=== PATIENT | female | born 1970 | race Caucasian/White ===

== ENCOUNTER → 2016-10-30 | Outpatient (CLI) | payer OTHER ==
[~2016-10-30] MED LIST: ANAPROX DS550 MG PO; AUGMENTIN 875875 MG PO; CHANTIX0.5 MG PO; CLARITIN10 MG PO; CYCLOBENZAPRINE10 MG PO; DAYPRO600 M1 PO; DELTASONE20 M1 PO; DONNATAL1 TAB PO; FLEXERIL10 MG PO; HYCODAN/HYDROMET5 ML PO; HYDROCODONE BIT1 T11 PO; K-DUR 20MEQ20 MEQ PO; MEDROL DOSEPAK4 MG PO; MOTRIN600 MG PO; MOTRIN800 MG PO; Motrin,Rufen800 MG PO; NAPROSYN500 MG PO; NKHM; PHENERGAN25 M1 PO; PREDNICOT20 MG PO; PROTONIX40 MG PO; PROVENTIL0.09 MG/A1 INH; ROBAXIN750 MG PO; SEPTRA DS 800 M1 TAB PO; TRAMADOL HCL50 MG PO; ULTRAM50 MG PO; VICODIN 5/500 505 MG PO; VICODIN 500 MG-1 TAB PO; ZITHROMAX250 MG PO; ZOFRAN ODT4 MG PO
== END | disposition home or self-care (01) ==
LOC: MAMMO 12:18
DX: Z12.31 Encounter for screening mammogram for malignant neoplasm of breast (principal)

== ENCOUNTER → 2017-02-11 | Outpatient (CLI) | payer OTHER | END | disposition home or self-care (01) | LOC: RAD 08:35 | DX: M25.552 Pain in left hip (principal); M25.551 Pain in right hip ==

== ENCOUNTER 2017-04-04 20:53 | Emergency (ER) | payer OTHER ==
[~2017-04-04] VITALS: Ht 180.3 cm; Wt 91.2 kg
[2017-04-04 20:58] VITALS: BP 170/91
[2017-04-04] MEDS ORDERED: CEPHALEXIN500 M1 PO (22:10)
== END 2017-04-04 22:45 | disposition home or self-care (01) ==
LOC: ED 20:53
DX: S61.217A Laceration without foreign body of left little finger without damage to nail, initial encounter (principal); Z91.041 Radiographic dye allergy status; W25.XXXA Contact with sharp glass, initial encounter; Y93.89 Activity, other specified; Y92.9 Unspecified place or not applicable; Y99.9 Unspecified external cause status

== ENCOUNTER 2017-05-06 17:01 | Emergency (ER) | payer OTHER ==
[~2017-05-06] VITALS: Wt 87.1 kg
[~2017-05-06 17:01] MED LIST changes: +CEPHALEXIN500 M1 PO
[2017-05-06 17:02] VITALS: BP 162/89
[2017-05-06 17:34] LABS: BASO # 0.1 10*3/uL (0.0-0.1); BASO % 0.7 % (0.0-1.0); EOS # 0.3 10*3/uL (0.0-0.4); EOS % 2.4 % (1.0-4.0); HEMATOCRIT 42.8 % (37.0-47.0); HEMOGLOBIN 14.6 g/dl (12.0-16.0); LYMPH # 3.5 10*3/uL (1.3-4.4); LYMPH % 28.5 % (27.0-41.0); MEAN CELL VOLUME 89.5 fl (81.0-99.0); MEAN CORPUSCULAR HGB 30.5 pg (27.0-31.0); MEAN CORPUSCULAR HGB CONC 34.1 g/dl (33.0-37.0); MEAN PLATELET VOLUME 8.9 fl (9.6-12.3); MONO # 0.7 10*3/uL (0.1-1.0); MONO % 5.6 % (3.0-9.0); NEUT # 7.8 10*3/uL (2.3-7.9); NEUT % 62.6 % (47.0-73.0); PLATELET COUNT AUTOMATED 328 10*3/uL (130-400); RED BLOOD COUNT 4.78 10*6/uL (4.10-5.10); RED CELL DISTRI WIDTH 12.9 % (0-14.5); WHITE BLOOD COUNT 12.4 10*3/uL (4.8-10.8)
[2017-05-06 17:41] LABS: BILIRUBIN NEGATIVE (NEGATIVE); BLOOD 1+ (NEGATIVE); CLARITY SL CLOUDY (CLEAR); COLOR YELLOW (YELLOW); GLUCOSE NEGATIVE (NEGATIVE); KETONE NEGATIVE (NEGATIVE); LEUKO ESTERASE NEGATIVE (NEGATIVE); NITRITE NEGATIVE (NEGATIVE); PROTEIN TRACE (NEGATIVE); SPECIFIC GRAVITY >= 1.030 (1.005-1.030); UROBILINOGEN 0.2 E.U./dl (0.2-1.0)
[2017-05-06 17:50] LABS: ALBUMIN 3.4 gm/dl (3.1-4.5); ALKALINE PHOSPHATASE 76 U/L (45-117); BILIRUBIN, TOTAL 0.3 mg/dl (0.2-1.0); BUN 10 mg/dl (7-24); CARBON DIOXIDE 22 mmol/L (21-32); CHLORIDE 105 mmol/L (98-107); EST GLOM FILT AFRICAN AMERICAN > 60 ml/min; GLUCOSE 157 mg/dL (65-99); POTASSIUM 3.1 mmol/L (3.5-5.1); SGOT/AST 14 IU/L (3-35); SGPT/ALT 17 U/L (12-78); SODIUM 138 mmol/L (136-145); TOTAL PROTEIN 6.7 gm/dL (6.4-8.2)
[2017-05-06 17:59] LABS: BACTERIA 2+; MUCOUS TRACE; URINE REFLEX COMMENT YES (NO)
[2017-05-06 18:01] LABS: EPITHELIAL CELLS 20-25
[2017-05-06] MEDS ORDERED: LEVOFLOXACIN500 MG PO (18:33)
[2017-05-06] MEDS ORDERED: FLAGYL500 MG PO (18:33)
[2017-05-06] MEDS ORDERED: HYDROCODONE BIT1 T11 PO (18:38)
== END 2017-05-06 18:48 | disposition home or self-care (01) ==
LOC: ED 17:01
PROVIDERS: Registered Nurse
DX: R30.0 Dysuria (principal); R19.7 Diarrhea, unspecified; F17.200 Nicotine dependence, unspecified, uncomplicated; Z90.49 Acquired absence of other specified parts of digestive tract; Z91.041 Radiographic dye allergy status

== ENCOUNTER 2017-05-08 07:10 | Emergency (ER) | payer OTHER ==
[~2017-05-08] VITALS: Ht 180.3 cm; Wt 87.1 kg
[~2017-05-08 07:10] MED LIST changes: +FLAGYL500 MG PO; +LEVOFLOXACIN500 MG PO
[2017-05-08 07:16] VITALS: BP 136/88
[2017-05-08 07:39] LABS: BASO # 0.1 10*3/uL (0.0-0.1); BASO % 0.8 % (0.0-1.0); EOS # 0.4 10*3/uL (0.0-0.4); EOS % 3.3 % (1.0-4.0); HEMATOCRIT 46.6 % (37.0-47.0); HEMOGLOBIN 15.6 g/dl (12.0-16.0); LYMPH # 3.2 10*3/uL (1.3-4.4); LYMPH % 26.3 % (27.0-41.0); MEAN CELL VOLUME 89.6 fl (81.0-99.0); MEAN CORPUSCULAR HGB CONC 33.5 g/dl (33.0-37.0); MEAN PLATELET VOLUME 8.8 fl (9.6-12.3); MONO # 1.2 10*3/uL (0.1-1.0); MONO % 9.9 % (3.0-9.0); NEUT # 7.3 10*3/uL (2.3-7.9); NEUT % 59.4 % (47.0-73.0); PLATELET COUNT AUTOMATED 339 10*3/uL (130-400); RED CELL DISTRI WIDTH 12.9 % (0-14.5); WHITE BLOOD COUNT 12.3 10*3/uL (4.8-10.8)
[2017-05-08 07:58] LABS: ALBUMIN 3.7 gm/dl (3.1-4.5); ALKALINE PHOSPHATASE 85 U/L (45-117); BILIRUBIN, TOTAL 0.4 mg/dl (0.2-1.0); BUN 11 mg/dl (7-24); CARBON DIOXIDE 25 mmol/L (21-32); CHLORIDE 105 mmol/L (98-107); EST GLOM FILT AFRICAN AMERICAN > 60 ml/min; GLUCOSE 120 mg/dL (65-99); POTASSIUM 3.4 mmol/L (3.5-5.1); SGOT/AST 16 IU/L (3-35); SGPT/ALT 18 U/L (12-78); SODIUM 137 mmol/L (136-145); TOTAL PROTEIN 7.4 gm/dL (6.4-8.2)
[2017-05-08 08:04] LABS: C-REACTIVE PROTEIN < 0.29 MG/DL (0-0.3)
[2017-05-08 08:17] LABS: BILIRUBIN NEGATIVE (NEGATIVE); BLOOD 2+ (NEGATIVE); CLARITY SL CLOUDY (CLEAR); COLOR YELLOW (YELLOW); GLUCOSE NEGATIVE (NEGATIVE); KETONE TRACE (NEGATIVE); LEUKO ESTERASE TRACE (NEGATIVE); NITRITE NEGATIVE (NEGATIVE); PH 5.5 (5.0-9.0); PROTEIN TRACE (NEGATIVE); SPECIFIC GRAVITY >= 1.030 (1.005-1.030); UROBILINOGEN 0.2 E.U./dl (0.2-1.0)
[2017-05-08 08:25] LABS: CALCIUM OXALATE CRYSTALS 1+
[2017-05-08 08:26] LABS: URINE REFLEX COMMENT YES (NO)
[2017-05-08] MEDS ORDERED: IBU800 MG PO (09:33)
== END 2017-05-08 10:15 | disposition home or self-care (01) ==
LOC: ED 07:10
PROVIDERS: Student in an Organized Health Care Education/Training Program
DX: N20.0 Calculus of kidney (principal); R10.32 Left lower quadrant pain; R31.9 Hematuria, unspecified; F17.200 Nicotine dependence, unspecified, uncomplicated; Z90.49 Acquired absence of other specified parts of digestive tract; Z91.041 Radiographic dye allergy status

== ENCOUNTER 2017-11-02 23:17 | Emergency (ER) | payer OTHER ==
[~2017-11-02] VITALS: Ht 172.7 cm; Wt 70.3 kg
[~2017-11-02 23:17] MED LIST changes: +IBU800 MG PO
[2017-11-02 23:36] VITALS: BP 151/81
[2017-11-03] MEDS ORDERED: CHERATUSSIN AC118 M1 PO (02:27)
[2017-11-03] MEDS ORDERED: ZITHROMAX250 MG PO (03:07)
[2017-11-03] MEDS ORDERED: ALBUTEROL2.5 MG/0.5 INH (03:07)
[2017-11-03] MEDS ORDERED: PREDNISONE20 M1 PO (03:07)
== END 2017-11-03 03:23 | disposition home or self-care (01) ==
LOC: ED 23:17
DX: J40 Bronchitis, not specified as acute or chronic (principal); F17.200 Nicotine dependence, unspecified, uncomplicated; Z98.890 Other specified postprocedural states; Z98.51 Tubal ligation status; Z79.899 Other long term (current) drug therapy; Z91.041 Radiographic dye allergy status

== ENCOUNTER 2018-02-07 09:25 | Emergency (ER) | payer OTHER ==
[~2018-02-07] VITALS: Ht 180.3 cm; Wt 82.6 kg
[~2018-02-07 09:25] MED LIST changes: +ALBUTEROL2.5 MG/0.5 INH; +CHERATUSSIN AC118 M1 PO; +PREDNISONE20 M1 PO
[2018-02-07 09:26] VITALS: BP 149/90
== END 2018-02-07 10:00 | disposition home or self-care (01) ==
LOC: ED 09:25
DX: S30.861A Insect bite (nonvenomous) of abdominal wall, initial encounter (principal); R03.0 Elevated blood-pressure reading, without diagnosis of hypertension; Z98.890 Other specified postprocedural states; Z98.51 Tubal ligation status; Z90.49 Acquired absence of other specified parts of digestive tract; Z79.899 Other long term (current) drug therapy; Z91.041 Radiographic dye allergy status; W57.XXXA Bitten or stung by nonvenomous insect and other nonvenomous arthropods, initial encounter; Y93.89 Activity, other specified; Y92.89 Other specified places as the place of occurrence of the external cause; Y99.9 Unspecified external cause status

== ENCOUNTER 2018-06-29 14:44 | Emergency (ER) | payer BC, OTHER ==
[~2018-06-29] VITALS: Ht 180.3 cm; Wt 83.0 kg
[~2018-06-29 14:44] MED LIST changes: +AVPAK AZITHROM250 M1 PO; +PREDNISONE50 MG PO
[2018-06-29 15:40] LABS: BASO # 0.1 10*3/uL (0.0-0.1); BASO % 0.7 % (0.0-1.0); EOS # 0.7 10*3/uL (0.0-0.4); EOS % 6.4 % (1.0-4.0); HEMATOCRIT 45.1 % (37.0-47.0); HEMOGLOBIN 15.3 g/dl (12.0-16.0); LYMPH # 1.3 10*3/uL (1.3-4.4); LYMPH % 12.2 % (27.0-41.0); MEAN CELL VOLUME 90.2 fl (81.0-99.0); MEAN CORPUSCULAR HGB 30.6 pg (27.0-31.0); MEAN CORPUSCULAR HGB CONC 33.9 g/dl (33.0-37.0); MEAN PLATELET VOLUME 8.7 fl (9.6-12.3); MONO # 1.3 10*3/uL (0.1-1.0); MONO % 11.4 % (3.0-9.0); NEUT # 7.6 10*3/uL (2.3-7.9); PLATELET COUNT AUTOMATED 294 10*3/uL (130-400); RED CELL DISTRI WIDTH 13.1 % (0-14.5)
[2018-06-29 15:55] LABS: ALBUMIN 3.5 gm/dl (3.1-4.5); ALKALINE PHOSPHATASE 96 U/L (45-117); BUN 5 mg/dl (7-24); CHLORIDE 104 mmol/L (98-107); POTASSIUM 3.6 mmol/L (3.5-5.1); SGOT/AST 16 IU/L (3-35); SGPT/ALT 19 U/L (12-78); SODIUM 137 mmol/L (136-145); TOTAL PROTEIN 7.1 gm/dL (6.4-8.2)
[2018-06-29] MEDS ORDERED: OFLOXACIN 5 ML5 M1 OP (17:18)
[2018-06-29] MEDS ORDERED: PRILOSEC20 M1 PO ×2 (17:18→17:23)
[2018-06-29] MEDS ORDERED: OFLOXACIN OP (17:23)
[2018-06-29] MEDS ORDERED: VIBRAMYCIN100 MG PO (17:23)
[2018-06-29 17:32] VITALS: BP 120/67
== END 2018-06-29 17:21 | disposition home or self-care (01) ==
LOC: ED 14:44
PROVIDERS: Student in an Organized Health Care Education/Training Program
DX: H60.92 Unspecified otitis externa, left ear (principal); J04.0 Acute laryngitis; J40 Bronchitis, not specified as acute or chronic; G89.29 Other chronic pain; Z91.041 Radiographic dye allergy status; Z79.2 Long term (current) use of antibiotics; Z79.899 Other long term (current) drug therapy; Z90.49 Acquired absence of other specified parts of digestive tract

== ENCOUNTER 2018-10-21 17:45 | Emergency (ER) | payer BC ==
[~2018-10-21] VITALS: Ht 180.3 cm; Wt 83.0 kg
[~2018-10-21 17:45] MED LIST changes: +OFLOXACIN 5 ML5 M1 OP; +OFLOXACIN OP; +PRILOSEC20 M1 PO; +VIBRAMYCIN100 MG PO
[2018-10-21 17:47] VITALS: BP 154/78
[2018-10-21] MEDS ORDERED: ANAPROX DS550 MG PO (20:07)
== END 2018-10-21 20:11 | disposition home or self-care (01) ==
LOC: ED 17:45
DX: S30.0XXA Contusion of lower back and pelvis, initial encounter (principal); F17.200 Nicotine dependence, unspecified, uncomplicated; Z91.041 Radiographic dye allergy status; Z79.2 Long term (current) use of antibiotics; Z79.899 Other long term (current) drug therapy; Z90.49 Acquired absence of other specified parts of digestive tract; Y04.2XXA Assault by strike against or bumped into by another person, initial encounter; Y93.89 Activity, other specified; Y92.89 Other specified places as the place of occurrence of the external cause; Y99.8 Other external cause status

== ENCOUNTER 2018-11-12 18:26 | Emergency (ER) | payer BC ==
[~2018-11-12] VITALS: Ht 180.3 cm; Wt 83.0 kg
[2018-11-12 18:27] VITALS: BP 139/82
[2018-11-12 19:55] LABS: BASO # 0.1 10*3/uL (0.0-0.1); BASO % 0.7 % (0.0-1.0); EOS # 0.5 10*3/uL (0.0-0.4); EOS % 2.6 % (1.0-4.0); HEMATOCRIT 45.6 % (37.0-47.0); HEMOGLOBIN 15.5 g/dl (12.0-16.0); LYMPH # 4.4 10*3/uL (1.3-4.4); LYMPH % 25.5 % (27.0-41.0); MEAN CELL VOLUME 89.1 fl (81.0-99.0); MEAN CORPUSCULAR HGB 30.3 pg (27.0-31.0); MEAN PLATELET VOLUME 8.6 fl (9.6-12.3); MONO # 1.2 10*3/uL (0.1-1.0); MONO % 6.8 % (3.0-9.0); NEUT # 11.1 10*3/uL (2.3-7.9); NEUT % 63.9 % (47.0-73.0); PLATELET COUNT AUTOMATED 366 10*3/uL (130-400); RED BLOOD COUNT 5.12 10*6/uL (4.10-5.10); RED CELL DISTRI WIDTH 13.1 % (0-14.5); WHITE BLOOD COUNT 17.4 10*3/uL (4.8-10.8)
[2018-11-12 20:03] LABS: INTERNATIONAL NORM RATIO 0.9 (2.0-3.5)
[2018-11-12 20:10] LABS: ALBUMIN 3.7 gm/dl (3.1-4.5); ALKALINE PHOSPHATASE 99 U/L (45-117); BUN 8 mg/dl (7-24); CHLORIDE 106 mmol/L (98-107); CREATININE 0.85 mg/dL (0.55-1.02); POTASSIUM 3.8 mmol/L (3.5-5.1); SGOT/AST 16 IU/L (3-35); SGPT/ALT 19 U/L (12-78); SODIUM 139 mmol/L (136-145); TOTAL PROTEIN 7.2 gm/dL (6.4-8.2)
[2018-11-12] MEDS ORDERED: IBU800 MG PO (20:44)
== END 2018-11-12 20:55 | disposition home or self-care (01) ==
LOC: ED 18:26
PROVIDERS: Nurse Practitioner Family
DX: M71.21 Synovial cyst of popliteal space [Baker], right knee (principal); D72.829 Elevated white blood cell count, unspecified; Z91.041 Radiographic dye allergy status; Z79.899 Other long term (current) drug therapy; Z79.2 Long term (current) use of antibiotics; Z90.49 Acquired absence of other specified parts of digestive tract

== ENCOUNTER → 2019-01-09 | Outpatient (CLI) | payer BC ==
[~2019-01-09] MED LIST changes: +XARELTO1 EACH PO
[2019-01-09 10:44] LABS: BASO # 0.1 10*3/uL (0.0-0.1); BASO % 0.7 % (0.0-1.0); EOS # 0.3 10*3/uL (0.0-0.4); EOS % 2.5 % (1.0-4.0); HEMATOCRIT 43.5 % (37.0-47.0); HEMOGLOBIN 14.5 g/dl (12.0-16.0); LYMPH # 3.2 10*3/uL (1.3-4.4); LYMPH % 26.3 % (27.0-41.0); MEAN CELL VOLUME 90.8 fl (81.0-99.0); MEAN CORPUSCULAR HGB 30.3 pg (27.0-31.0); MEAN CORPUSCULAR HGB CONC 33.3 g/dl (33.0-37.0); MEAN PLATELET VOLUME 9.3 fl (9.6-12.3); MONO # 0.9 10*3/uL (0.1-1.0); MONO % 7.6 % (3.0-9.0); NEUT # 7.7 10*3/uL (2.3-7.9); NEUT % 62.4 % (47.0-73.0); PLATELET COUNT AUTOMATED 381 10*3/uL (130-400); RED BLOOD COUNT 4.79 10*6/uL (4.10-5.10); RED CELL DISTRI WIDTH 13.2 % (0-14.5); WHITE BLOOD COUNT 12.3 10*3/uL (4.8-10.8)
[2019-01-09 10:47] LABS: BODY FLUID WBC 435 /uL
[2019-01-09 11:38] LABS: BF LYMPHOCYTES 51 %; BF MACROPHAGES 5 %; BF MONOCYTES 34 %; BF NEUTROPHILS 7 %
[2019-01-10 12:04] LABS: ACID FAST SPEC PROCESSING Direct Inoculation (.)
[2019-02-16 12:04] LABS: ACID FAST CULTURE Negative (.)
== END | disposition home or self-care (01) ==
LOC: LAB 09:47
PROVIDERS: Orthopaedic Surgery
DX: M25.461 Effusion, right knee (principal)

== ENCOUNTER 2019-01-13 22:26 | Emergency (ER) | payer BC ==
[~2019-01-13] VITALS: Ht 180.3 cm; Wt 83.9 kg
[~2019-01-13 22:26] MED LIST changes: -XARELTO1 EACH PO
[2019-01-13 22:27] VITALS: BP 165/89
[2019-02-27] MEDS ORDERED: XARELTO1 EACH PO (19:31)
== END 2019-01-13 23:36 | disposition home or self-care (01) ==
LOC: ED 22:26
DX: M25.561 Pain in right knee (principal); G89.29 Other chronic pain; M54.5 Low back pain; Z98.890 Other specified postprocedural states; Z98.51 Tubal ligation status; Z90.49 Acquired absence of other specified parts of digestive tract; Z79.899 Other long term (current) drug therapy; Z91.041 Radiographic dye allergy status

== ENCOUNTER → 2019-02-27 | Outpatient (CLI) | payer BC ==
[~2019-02-27] MED LIST changes: +XARELTO1 EACH PO
== END | disposition home or self-care (01) ==
LOC: US 15:04
DX: I82.431 Acute embolism and thrombosis of right popliteal vein (principal); I82.441 Acute embolism and thrombosis of right tibial vein

== ENCOUNTER 2020-12-06 07:24 | Emergency (ER) | payer OTHER ==
[~2020-12-06] VITALS: Ht 180.3 cm; Wt 83.9 kg
[2020-12-06 07:40] VITALS: BP 139/85
[2020-12-06 08:01] LABS: BASO # 0.1 10*3/uL (0.0-0.1); BASO % 0.8 % (0.0-1.0); EOS # 0.4 10*3/uL (0.0-0.4); EOS % 2.9 % (1.0-4.0); HEMATOCRIT 48.4 % (37.0-47.0); LYMPH # 2.9 10*3/uL (1.3-4.4); LYMPH % 24.2 % (27.0-41.0); MEAN CELL VOLUME 90.6 fl (81.0-99.0); MEAN CORPUSCULAR HGB CONC 33.1 g/dl (33.0-37.0); MEAN PLATELET VOLUME 9.1 fl (9.6-12.3); MONO # 0.8 10*3/uL (0.1-1.0); MONO % 6.6 % (3.0-9.0); NEUT # 7.8 10*3/uL (2.3-7.9); NEUT % 65.2 % (47.0-73.0); PLATELET COUNT AUTOMATED 372 10*3/uL (130-400); RED BLOOD COUNT 5.34 10*6/uL (4.10-5.10); RED CELL DISTRI WIDTH 12.6 % (0-14.5)
[2020-12-06 08:12] LABS: ACT PARTIAL THROMBO TIME 24.5 SECONDS (20.0-32.1); INTERNATIONAL NORM RATIO 0.9 (2.0-3.5)
[2020-12-06 08:18] LABS: ALBUMIN 3.8 gm/dl (3.1-4.5); ALKALINE PHOSPHATASE 104 U/L (45-117); BUN 8 mg/dl (7-24); CHLORIDE 109 mmol/L (98-107); CREATININE 0.96 mg/dL (0.55-1.02); LIPASE 93 U/L (73-393); POTASSIUM 3.6 mmol/L (3.5-5.1); SGOT/AST 13 IU/L (3-35); SGPT/ALT 23 U/L (12-78); SODIUM 137 mmol/L (136-145); TOTAL PROTEIN 7.7 gm/dL (6.4-8.2)
[2020-12-06 08:21] LABS: TROPONIN I < 0.015 ng/ml (<0.045)
== END 2020-12-06 15:35 | disposition left against medical advice (07) ==
LOC: ED 07:24
PROVIDERS: Emergency Medicine
DX: R10.9 Unspecified abdominal pain (principal); K21.9 Gastro-esophageal reflux disease without esophagitis; M10.9 Gout, unspecified; F17.200 Nicotine dependence, unspecified, uncomplicated; Z91.041 Radiographic dye allergy status; Z98.890 Other specified postprocedural states; Z90.49 Acquired absence of other specified parts of digestive tract; Z98.51 Tubal ligation status

== ENCOUNTER 2022-03-25 20:50 | Emergency (ER) | payer SELFPAY ==
[~2022-03-25] VITALS: Ht 180.3 cm; Wt 88.9 kg
[2022-03-25] MEDS ORDERED: SEPTDS PO (21:08)
== END 2022-03-25 21:15 | disposition home or self-care (01) ==
LOC: ED 20:50
DX: L03.116 Cellulitis of left lower limb (principal); N63.20 Unspecified lump in the left breast, unspecified quadrant

== ENCOUNTER 2023-06-01 23:10 | Emergency (ER) | payer SELFPAY ==
[~2023-06-01] VITALS: Ht 180.3 cm; Wt 83.0 kg
[2023-06-01 23:10] VITALS: BP 162/76
[~2023-06-01 23:10] MED LIST changes: +SEPTDS PO
[2023-06-02] MEDS ORDERED: MELOXICAM15 MG PO (00:59)
== END 2023-06-02 01:53 | disposition home or self-care (01) ==
LOC: ED 23:10
DX: S43.402A Unspecified sprain of left shoulder joint, initial encounter (principal); K21.9 Gastro-esophageal reflux disease without esophagitis; Z98.51 Tubal ligation status; M10.9 Gout, unspecified; I10 Essential (primary) hypertension; Z91.041 Radiographic dye allergy status; Z88.0 Allergy status to penicillin; Z90.49 Acquired absence of other specified parts of digestive tract; Z98.890 Other specified postprocedural states; Z87.891 Personal history of nicotine dependence; X50.1XXA Overexertion from prolonged static or awkward postures, initial encounter; Y93.89 Activity, other specified; Y92.89 Other specified places as the place of occurrence of the external cause; Y99.8 Other external cause status

== ENCOUNTER 2024-05-14 23:39 | Emergency (ER) | payer SELFPAY ==
[~2024-05-14] VITALS: Ht 180.3 cm
[~2024-05-14 23:39] MED LIST changes: +MELOXICAM15 MG PO
[2024-05-14 23:48] VITALS: BP 177/88
[2024-05-14 23:59] LABS: BILIRUBIN Negative (Negative); BLOOD 3+ (Negative); CLARITY Cloudy (Clear); COLOR Dark Yellow (Yellow); GLUCOSE Negative (Negative); KETONE Trace (Negative); LEUKO ESTERASE Negative (Negative); NITRITE Negative (Negative); PH 5.5 (4.5-8.0); SPECIFIC GRAVITY >= 1.030 (1.001-1.030)
[2024-05-15 00:07] LABS: BACTERIA 1+; MUCOUS 1+; RBC TNTC rbc/hpf (0-2)
[2024-05-15] MEDS ORDERED: Ondansetron Hydrochloride 4 MG/2 ML VIAL IV ONE (00:20)
[2024-05-15] MEDS ORDERED: Ketorolac Tromethamine 15 MG/ML VIAL IV ONE ×2 (00:20→03:50)
[2024-05-15] MEDS ORDERED: SODIUM CHLORIDE 0.9% 1,000 ML IV ONE (00:20)
[2024-05-15 00:47] LABS: BASO # 0.1 10*3/uL (0.0-0.1); EOS # 0.4 10*3/uL (0.0-0.4); EOS % 3.9 % (1.0-4.0); HEMATOCRIT 43.4 % (37.0-47.0); LYMPH # 2.8 10*3/uL (1.3-4.4); LYMPH % 25.2 % (27.0-41.0); MEAN CELL VOLUME 93.5 fl (81.0-99.0); MEAN CORPUSCULAR HGB 31.5 pg (27.0-31.0); MEAN CORPUSCULAR HGB CONC 33.6 g/dl (33.0-37.0); MEAN PLATELET VOLUME 8.5 fl (9.6-12.3); MONO # 0.9 10*3/uL (0.1-1.0); MONO % 8.3 % (3.0-9.0); NEUT # 6.8 10*3/uL (2.3-7.9); NEUT % 61.3 % (47.0-73.0); PLATELET COUNT AUTOMATED 355 10*3/uL (130-400); RED BLOOD COUNT 4.64 10*6/uL (4.10-5.10); RED CELL DISTRI WIDTH 13.9 % (0-14.5); WHITE BLOOD COUNT 11.1 10*3/uL (4.8-10.8)
[2024-05-15 01:01] LABS: BUN 8 mg/dl (9-23); CHLORIDE 107 mmol/L (98-107); LIPASE 31 U/L (12-53); POTASSIUM 3.6 mmol/L (3.4-5.1)
[2024-05-15] MEDS ORDERED: PERCOCET 5-3251 EACH PO (04:40)
[2024-05-15] MEDS ORDERED: Acetaminophen/Oxycodone 5 MG/325 MG TABLET PO ONE (04:45)
== END 2024-05-15 04:51 | disposition home or self-care (01) ==
LOC: ED 23:39
PROVIDERS: Emergency Medicine
DX: N20.0 Calculus of kidney (principal); K21.9 Gastro-esophageal reflux disease without esophagitis; Z87.891 Personal history of nicotine dependence; Z91.041 Radiographic dye allergy status; Z88.0 Allergy status to penicillin; Z86.718 Personal history of other venous thrombosis and embolism; Z90.49 Acquired absence of other specified parts of digestive tract; Z98.51 Tubal ligation status; Z98.890 Other specified postprocedural states

== ENCOUNTER 2024-08-01 17:45 | Emergency (ER) | payer OTHER ==
[~2024-08-01] VITALS: Ht 180.3 cm; Wt 83.9 kg
[~2024-08-01 17:45] MED LIST changes: +PERCOCET 5-3251 EACH PO
[2024-08-01 17:52] VITALS: BP 183/94
[2024-08-01] MEDS ORDERED: DIAZEPAM 5 MG TAB PO ONE (18:00)
[2024-08-01] MEDS ORDERED: Acetaminophen/Oxycodone 5 MG/325 MG TABLET PO ONE (18:00)
[2024-08-01] MEDS ORDERED: CYCLOBENZAPRINE10 MG PO (18:32)
[2024-08-01] MEDS ORDERED: MELOXICAM15 MG PO (18:32)
== END 2024-08-01 19:01 | disposition home or self-care (01) ==
LOC: ED 17:45
DX: M62.830 Muscle spasm of back (principal); K21.9 Gastro-esophageal reflux disease without esophagitis; F17.200 Nicotine dependence, unspecified, uncomplicated; Z91.041 Radiographic dye allergy status; Z88.0 Allergy status to penicillin; Z90.49 Acquired absence of other specified parts of digestive tract; Z98.51 Tubal ligation status; Z98.890 Other specified postprocedural states

== ENCOUNTER → 2024-08-26 | Outpatient (CLI) | payer OTHER | END | disposition home or self-care (01) | LOC: RAD 11:53 | PROVIDERS: ATTEND Nurse Practitioner Adult Health | DX: J44.9 Chronic obstructive pulmonary disease, unspecified (principal); R06.02 Shortness of breath; R05.3 Chronic cough; R09.89 Other specified symptoms and signs involving the circulatory and respiratory systems; I10 Essential (primary) hypertension ==

== ENCOUNTER 2024-10-28 20:07 | Emergency (ER) | payer OTHER ==
[~2024-10-28] VITALS: Ht 180.3 cm; Wt 87.5 kg
[2024-10-28] MEDS ORDERED: SODIUM CHLORIDE 0.9% 1,000 ML IV ONE (20:30)
[2024-10-28 20:32] VITALS: BP 125/80
[2024-10-28] MEDS ORDERED: Ketorolac Tromethamine 30 MG/ML VIAL IV ONE (20:35)
[2024-10-28] MEDS ORDERED: Metoclopramide Hydrochloride 10 MG/2 ML VIAL IV ONE (20:35)
[2024-10-28] MEDS ORDERED: diphenhydrAMINE hydrochloride 50 MG/ML VIAL IV ONE (20:35)
[2024-10-28 20:50] LABS: BASO # 0.1 10*3/uL (0.0-0.1); BASO % 0.6 % (0.0-1.0); EOS # 0.3 10*3/uL (0.0-0.4); HEMATOCRIT 45.7 % (37.0-47.0); MEAN CORPUSCULAR HGB 29.5 pg (27.0-31.0); MEAN CORPUSCULAR HGB CONC 32.8 g/dl (33.0-37.0); MEAN PLATELET VOLUME 8.6 fl (9.6-12.3); MONO # 1.3 10*3/uL (0.1-1.0); NEUT # 9.6 10*3/uL (2.3-7.9); NEUT % 69.1 % (47.0-73.0); PLATELET COUNT AUTOMATED 401 10*3/uL (130-400); RED BLOOD COUNT 5.08 10*6/uL (4.10-5.10); RED CELL DISTRI WIDTH 12.9 % (0-14.5); WHITE BLOOD COUNT 13.9 10*3/uL (4.8-10.8)
[2024-10-28 21:05] LABS: BILIRUBIN Negative (Negative); BLOOD Negative (Negative); CLARITY Clear (Clear); COLOR Yellow (Yellow); GLUCOSE Negative (Negative); KETONE Negative (Negative); LEUKO ESTERASE Negative (Negative); NITRITE Negative (Negative); PH 6.5 (4.5-8.0); SPECIFIC GRAVITY <= 1.005 (1.001-1.030); UROBILINOGEN 0.2 E.U./dl (0.0-1.0)
[2024-10-28 21:14] LABS: POTASSIUM 3.5 mmol/L (3.4-5.1); TOTAL PROTEIN 7.1 gm/dL (6.0-8.0)
[2024-10-28 21:19] LABS: WBC 0-2 wbc/hpf (0-5)
[2024-10-28] MEDS ORDERED: Ondansetron4 MG PO (21:43)
== END 2024-10-28 21:58 | disposition home or self-care (01) ==
LOC: ED 20:07
PROVIDERS: Physician Assistant Medical
DX: B34.9 Viral infection, unspecified (principal); Z20.822 Contact with and (suspected) exposure to COVID-19; R55 Syncope and collapse; R10.31 Right lower quadrant pain; R19.7 Diarrhea, unspecified; I10 Essential (primary) hypertension; E78.5 Hyperlipidemia, unspecified; R11.2 Nausea with vomiting, unspecified; R51.9 Headache, unspecified; K21.9 Gastro-esophageal reflux disease without esophagitis; F17.200 Nicotine dependence, unspecified, uncomplicated; Z87.442 Personal history of urinary calculi; Z91.041 Radiographic dye allergy status; Z88.0 Allergy status to penicillin; Z90.49 Acquired absence of other specified parts of digestive tract; Z98.890 Other specified postprocedural states

== ENCOUNTER 2024-11-02 12:55 | Emergency (ER) | payer SELFPAY ==
[~2024-11-02] VITALS: Ht 180.3 cm; Wt 90.0 kg
[~2024-11-02 12:55] MED LIST changes: +Ondansetron4 MG PO
[2024-11-02 13:07] VITALS: BP 112/69
[2024-11-02] MEDS ORDERED: ATORVASTATIN CA20 M1 PO (13:20)
[2024-11-02] MEDS ORDERED: LISINOPRIL30 MG PO (13:20)
[2024-11-02] MEDS ORDERED: HYDROCHLOROTH12.5 M2 PO (13:20)
[2024-11-02] MEDS ORDERED: ALLERGY RELIEF10 M2 PO (13:21)
[2024-11-02] MEDS ORDERED: MONTELUKAST SOD10 MG PO (13:22)
[2024-11-02] MEDS ORDERED: SPIRIVA -- 3018 MCG INH (13:23)
[2024-11-02] MEDS ORDERED: DULERA 200 MCG-13 GM INH (13:23)
[2024-11-02] MEDS ORDERED: VIBRAMYCIN100 MG PO (14:36)
== END 2024-11-02 14:49 | disposition home or self-care (01) ==
LOC: ED 12:55
DX: I80.8 Phlebitis and thrombophlebitis of other sites (principal); L03.113 Cellulitis of right upper limb; F17.200 Nicotine dependence, unspecified, uncomplicated; Z91.041 Radiographic dye allergy status; Z88.0 Allergy status to penicillin; Z79.899 Other long term (current) drug therapy; Z86.718 Personal history of other venous thrombosis and embolism; Z87.442 Personal history of urinary calculi; Z98.890 Other specified postprocedural states; Z90.49 Acquired absence of other specified parts of digestive tract

== ENCOUNTER 2025-01-08 21:54 | Inpatient (IN) | payer OTHER ==
[~2025-01-08] VITALS: Ht 180.3 cm; Wt 96.3 kg
[~2025-01-08 21:54] MED LIST changes: +ALLERGY RELIEF10 M2 PO; +ATORVASTATIN CA20 M1 PO; +DULERA 200 MCG-13 GM INH; +HYDROCHLOROTH12.5 M2 PO; +LISINOPRIL30 MG PO; +MONTELUKAST SOD10 MG PO; +SPIRIVA -- 3018 MCG INH
[2025-01-08 22:06] VITALS: BP 100/72
[2025-01-08 22:33] LABS: BASO # 0.1 10*3/uL (0.0-0.1); BASO % 0.5 % (0.0-1.0); EOS # 0.4 10*3/uL (0.0-0.4); EOS % 2.2 % (1.0-4.0); HEMATOCRIT 37.2 % (37.0-47.0); MEAN CELL VOLUME 89.9 fl (81.0-99.0); MEAN CORPUSCULAR HGB 29.7 pg (27.0-31.0); MEAN CORPUSCULAR HGB CONC 33.1 g/dl (33.0-37.0); MEAN PLATELET VOLUME 8.2 fl (9.6-12.3); MONO # 1.2 10*3/uL (0.1-1.0); MONO % 7.8 % (3.0-9.0); NEUT # 10.9 10*3/uL (2.3-7.9); NEUT % 69.1 % (47.0-73.0); PLATELET COUNT AUTOMATED 443 10*3/uL (130-400); RED BLOOD COUNT 4.14 10*6/uL (4.10-5.10); RED CELL DISTRI WIDTH 13.2 % (0-14.5); WHITE BLOOD COUNT 15.7 10*3/uL (4.8-10.8)
[2025-01-08 22:51] LABS: POTASSIUM 3.7 mmol/L (3.4-5.1)
[2025-01-08] MEDS ORDERED: SODIUM CHLORIDE 0.9% 1,000 ML IV SCH (23:00)
[2025-01-09] MEDS ORDERED: AZITHROMYCIN 250 ML IV ONE (00:05)
[2025-01-09] MEDS ORDERED: cefTRIAXone Sodium 1 GM/10 ML SYR IV ONE (00:05)
[2025-01-09] MEDS ORDERED: BISACODYL 10 MG SUPP R PRN (00:25)
[2025-01-09] MEDS ORDERED: ACETAMINOPHEN 650 MG SUPP R PRN (00:25)
[2025-01-09] MEDS ORDERED: Magnesium Hydroxide 30 ML UDC PO PRN (00:25)
[2025-01-09] MEDS ORDERED: ACETAMINOPHEN 325 MG TAB PO PRN (00:25)
[2025-01-09] MEDS ORDERED: BISACODYL 5 MG TAB PO PRN (00:25)
[2025-01-09] MEDS ORDERED: Ondansetron Hydrochloride 4 MG/2 ML VIAL IV PRN (00:25)
[2025-01-09 01:20] VITALS: BP 107/70
[2025-01-09] MEDS ORDERED: Benzocaine/Menthol 1 LOZ LOZENGE PO PRN (05:15)
[2025-01-09] MEDS ORDERED: Albuterol Sulf/Ipratropium 3 ML VIAL NEB SCH (05:15)
[2025-01-09 07:08] LABS: BASO # 0.1 10*3/uL (0.0-0.1); BASO % 0.7 % (0.0-1.0); EOS # 0.3 10*3/uL (0.0-0.4); EOS % 2.3 % (1.0-4.0); HEMATOCRIT 35.6 % (37.0-47.0); MEAN CELL VOLUME 90.1 fl (81.0-99.0); MEAN CORPUSCULAR HGB 29.9 pg (27.0-31.0); MEAN CORPUSCULAR HGB CONC 33.1 g/dl (33.0-37.0); MEAN PLATELET VOLUME 8.2 fl (9.6-12.3); MONO # 1.2 10*3/uL (0.1-1.0); MONO % 8.5 % (3.0-9.0); PLATELET COUNT AUTOMATED 410 10*3/uL (130-400); RED BLOOD COUNT 3.95 10*6/uL (4.10-5.10); RED CELL DISTRI WIDTH 13.3 % (0-14.5); WHITE BLOOD COUNT 13.6 10*3/uL (4.8-10.8)
[2025-01-09 07:32] LABS: ALKALINE PHOSPHATASE 110 U/L (46-116); BUN 10 mg/dl (9-23); CHLORIDE 111 mmol/L (98-107); POTASSIUM 4.1 mmol/L (3.4-5.1); TOTAL PROTEIN 5.8 gm/dL (6.0-8.0)
[2025-01-09 07:43] LABS: SGPT/ALT < 7 U/L (5-49)
[2025-01-09 08:00] VITALS: BP 94/56
[2025-01-09] MEDS ORDERED: Enoxaparin Sodium 40 MG/0.4 ML SYR SC SCH (10:00)
[2025-01-09] MEDS ORDERED: Cetirizine Hydrochloride 10 MG TAB PO SCH (10:00)
[2025-01-09] MEDS ORDERED: GUAIFENESIN 600 MG TAB ER PO SCH (10:00)
[2025-01-09] MEDS ORDERED: Montelukast Sodium 10 MG TAB PO SCH (10:00)
[2025-01-09] MEDS ORDERED: Nicotine 14 MG PATCH T SCH (10:58)
[2025-01-09 12:00] VITALS: BP 102/72
[2025-01-09 16:00] VITALS: BP 104/62
[2025-01-09] MEDS ORDERED: ATORVASTATIN CALCIUM 20 MG TAB PO SCH (18:00)
[2025-01-09 20:00] VITALS: BP 114/70
[2025-01-09] MEDS ORDERED: AZITHROMYCIN 250 ML IV SCH (22:00)
[2025-01-09] MEDS ORDERED: cefTRIAXone Sodium 1 GM in SYRINGE INFUSION 10 ML IV SCH (22:00)
[2025-01-10] VITALS: BP 117/69
[2025-01-10 05:39] LABS: ALKALINE PHOSPHATASE 109 U/L (46-116); BUN 8 mg/dl (9-23); CHLORIDE 109 mmol/L (98-107); CHOLESTEROL 110 mg/dL (<200); FREE T4 1.32 ng/dl (0.89-1.76); LDL CHOLESTEROL 62 mg/dL (9-159); POTASSIUM 4.1 mmol/L (3.4-5.1); SGPT/ALT < 7 U/L (5-49); TRIGLYCERIDES 83 mg/dl (<150)
[2025-01-10 06:08] LABS: BASO # 0.1 10*3/uL (0.0-0.1); BASO % 0.8 % (0.0-1.0); EOS # 0.3 10*3/uL (0.0-0.4); EOS % 2.9 % (1.0-4.0); HEMATOCRIT 35.5 % (37.0-47.0); MEAN CELL VOLUME 92.7 fl (81.0-99.0); MEAN CORPUSCULAR HGB 29.5 pg (27.0-31.0); MEAN CORPUSCULAR HGB CONC 31.8 g/dl (33.0-37.0); MEAN PLATELET VOLUME 8.5 fl (9.6-12.3); MONO # 0.9 10*3/uL (0.1-1.0); MONO % 8.4 % (3.0-9.0); NEUT # 6.6 10*3/uL (2.3-7.9); NEUT % 58.7 % (47.0-73.0); PLATELET COUNT AUTOMATED 427 10*3/uL (130-400); RED BLOOD COUNT 3.83 10*6/uL (4.10-5.10); RED CELL DISTRI WIDTH 13.2 % (0-14.5); WHITE BLOOD COUNT 11.2 10*3/uL (4.8-10.8)
[2025-01-10 08:00] VITALS: BP 117/68
[2025-01-10 12:00] VITALS: BP 122/70
[2025-01-10 16:00] VITALS: BP 116/74
[2025-01-10 20:00] VITALS: BP 120/77
[2025-01-11] VITALS: BP 132/70
[2025-01-11 06:40] LABS: BASO # 0.1 10*3/uL (0.0-0.1); BASO % 0.8 % (0.0-1.0); EOS # 0.4 10*3/uL (0.0-0.4); EOS % 3.3 % (1.0-4.0); HEMATOCRIT 36.3 % (37.0-47.0); MEAN CELL VOLUME 89.9 fl (81.0-99.0); MEAN CORPUSCULAR HGB 28.5 pg (27.0-31.0); MEAN CORPUSCULAR HGB CONC 31.7 g/dl (33.0-37.0); MEAN PLATELET VOLUME 8.2 fl (9.6-12.3); MONO % 8.3 % (3.0-9.0); NEUT % 59.4 % (47.0-73.0); PLATELET COUNT AUTOMATED 457 10*3/uL (130-400); RED BLOOD COUNT 4.04 10*6/uL (4.10-5.10); RED CELL DISTRI WIDTH 13.2 % (0-14.5); WHITE BLOOD COUNT 11.8 10*3/uL (4.8-10.8)
[2025-01-11 07:32] LABS: BUN 8 mg/dl (9-23); CHLORIDE 109 mmol/L (98-107); POTASSIUM 3.6 mmol/L (3.4-5.1)
[2025-01-11 08:00] VITALS: BP 133/76
[2025-01-11] MEDS ORDERED: Cholecalciferol 2,000 UNIT TABLET (50 MCG) PO SCH (10:00)
[2025-01-11] MEDS ORDERED: NICODERM CQ1 EAC1 T (10:45)
[2025-01-11] MEDS ORDERED: VITAMIN D350 MCG PO (10:45)
[2025-01-11] MEDS ORDERED: DOXYCYCLINE HY100 M3 PO (10:45)
[2025-01-11] MEDS ORDERED: ALBUTEROL S5 MG/1 ML NEB (11:22)
[2025-01-11 12:00] VITALS: BP 123/79
== END 2025-01-11 12:02 | disposition home or self-care (01) | DRG 871 ==
LOC: ED 21:54 → 4E 01-09 00:16 → EDHOLD 01-09 00:16 → 4E 01-09 00:41
PROVIDERS: Internal Medicine; Student in an Organized Health Care Education/Training Program; ADMIT Internal Medicine; ATTEND Internal Medicine
DX: A41.9 Sepsis, unspecified organism (principal); J18.9 Pneumonia, unspecified organism; N17.0 Acute kidney failure with tubular necrosis; E87.1 Hypo-osmolality and hyponatremia; J44.0 Chronic obstructive pulmonary disease with (acute) lower respiratory infection; D75.839 Thrombocytosis, unspecified; F17.210 Nicotine dependence, cigarettes, uncomplicated; Z20.822 Contact with and (suspected) exposure to COVID-19; Z86.718 Personal history of other venous thrombosis and embolism; Z71.6 Tobacco abuse counseling; Z80.1 Family history of malignant neoplasm of trachea, bronchus and lung; Z88.0 Allergy status to penicillin; Z88.8 Allergy status to other drugs, medicaments and biological substances; Z79.899 Other long term (current) drug therapy; Z90.49 Acquired absence of other specified parts of digestive tract

== ENCOUNTER 2025-02-05 18:46 | Inpatient (IN) | payer OTHER ==
[~2025-02-05] VITALS: Ht 180.3 cm; Wt 109.0 kg
[~2025-02-05 18:46] MED LIST changes: +ALBUTEROL S5 MG/1 ML NEB; +DOXYCYCLINE HY100 M3 PO; +NICODERM CQ1 EAC1 T; +VITAMIN D350 MCG PO
[2025-02-05 19:42] VITALS: BP 108/68
[2025-02-05] MEDS ORDERED: NORVASC5 MG PO (19:44)
[2025-02-05] MEDS ORDERED: Albuterol Sulf/Ipratropium 3 ML VIAL NEB ONE (20:45)
[2025-02-05 20:59] LABS: BASO # 0.1 10*3/uL (0.0-0.1); BASO % 0.6 % (0.0-1.0); EOS # 0.5 10*3/uL (0.0-0.4); EOS % 3.7 % (1.0-4.0); HEMATOCRIT 43.2 % (37.0-47.0); MEAN CELL VOLUME 91.3 fl (81.0-99.0); MEAN CORPUSCULAR HGB 29.4 pg (27.0-31.0); MEAN CORPUSCULAR HGB CONC 32.2 g/dl (33.0-37.0); MEAN PLATELET VOLUME 8.5 fl (9.6-12.3); MONO # 1.2 10*3/uL (0.1-1.0); MONO % 8.3 % (3.0-9.0); NEUT # 10.1 10*3/uL (2.3-7.9); NEUT % 71.3 % (47.0-73.0); PLATELET COUNT AUTOMATED 365 10*3/uL (130-400); RED BLOOD COUNT 4.73 10*6/uL (4.10-5.10); RED CELL DISTRI WIDTH 13.4 % (0-14.5); WHITE BLOOD COUNT 14.1 10*3/uL (4.8-10.8)
[2025-02-05 21:20] LABS: ALKALINE PHOSPHATASE 114 U/L (46-116); BUN 13 mg/dl (9-23); CHLORIDE 105 mmol/L (98-107); POTASSIUM 3.8 mmol/L (3.4-5.1); SGPT/ALT 15 U/L (5-49); TOTAL PROTEIN 6.9 gm/dL (6.0-8.0)
[2025-02-05] MEDS ORDERED: cefTRIAXone Sodium 1 GM/10 ML SYR IV ONE (23:40)
[2025-02-05] MEDS ORDERED: methylPREDNISolone sod succ 125 MG VIAL IV ONE (23:40)
[2025-02-05] MEDS ORDERED: AZITHROMYCIN 250 ML IV ONE (23:40)
[2025-02-05] MEDS ORDERED: SODIUM CHLORIDE 0.9% 1,000 ML IV SCH (23:40)
[2025-02-05] MEDS ORDERED: ACETAMINOPHEN 325 MG TAB PO PRN (23:50)
[2025-02-05] MEDS ORDERED: Ondansetron Hydrochloride 4 MG/2 ML VIAL IV PRN (23:50)
[2025-02-05] MEDS ORDERED: Acetaminophen/Hydrocodone 5 MG/325 MG TABLET PO PRN (23:50)
[2025-02-05] MEDS ORDERED: Albuterol Sulf/Ipratropium 3 ML VIAL NEB SCH (23:50)
[2025-02-05] MEDS ORDERED: BISACODYL 5 MG TAB PO PRN (23:50)
[2025-02-05] MEDS ORDERED: TEMAZEPAM 15 MG CAP PO PRN (23:50)
[2025-02-05] MEDS ORDERED: ACETAMINOPHEN 650 MG SUPP R PRN (23:50)
[2025-02-05] MEDS ORDERED: Magnesium Hydroxide 30 ML UDC PO PRN (23:50)
[2025-02-05] MEDS ORDERED: MORPHINE Sulfate 2 MG/ML SYR IV PRN (23:50)
[2025-02-05] MEDS ORDERED: BISACODYL 10 MG SUPP R PRN (23:50)
[2025-02-06 00:49] VITALS: BP 114/68
[2025-02-06 02:01] VITALS: BP 122/76
[2025-02-06 04:03] VITALS: BP 115/69
[2025-02-06 04:21] LABS: HEMATOCRIT 38.9 % (37.0-47.0); MEAN CELL VOLUME 90.5 fl (81.0-99.0); MEAN CORPUSCULAR HGB 29.8 pg (27.0-31.0); MEAN CORPUSCULAR HGB CONC 32.9 g/dl (33.0-37.0); MEAN PLATELET VOLUME 8.5 fl (9.6-12.3); PLATELET COUNT AUTOMATED 352 10*3/uL (130-400); RED CELL DISTRI WIDTH 13.4 % (0-14.5); WHITE BLOOD COUNT 13.6 10*3/uL (4.8-10.8)
[2025-02-06 04:23] LABS: MANUAL DIFF REFLEX YES
[2025-02-06 04:46] LABS: PLATELET SUFFICIENCY NORMAL (NORMAL); TOTAL CELLS COUNTED 100 #CELLS
[2025-02-06 04:47] LABS: BUN 12 mg/dl (9-23); CHLORIDE 110 mmol/L (98-107); POTASSIUM 4.1 mmol/L (3.4-5.1)
[2025-02-06 09:06] VITALS: BP 104/61
[2025-02-06] MEDS ORDERED: Enoxaparin Sodium 40 MG/0.4 ML SYR SC SCH (10:00)
[2025-02-06] MEDS ORDERED: cefTRIAXone Sodium 1 GM in SYRINGE INFUSION 10 ML IV SCH ×2 (10:00→22:00)
[2025-02-06] MEDS ORDERED: methylPREDNISolone sod succ 40 MG VIAL IV SCH (10:00)
[2025-02-06] MEDS ORDERED: cefTRIAXone Sodium 10 ML IV ONE (11:10)
[2025-02-06] MEDS ORDERED: Albuterol Sulf/Ipratropium 3 ML VIAL NEB SCH (14:30)
[2025-02-06] MEDS ORDERED: BUDESONIDE 0.5 MG AMP NEB SCH (18:00)
[2025-02-06] MEDS ORDERED: ATORVASTATIN CALCIUM 20 MG TAB PO SCH (18:00)
[2025-02-06] MEDS ORDERED: AZITHROMYCIN 250 ML IV SCH (22:00)
[2025-02-06] MEDS ORDERED: GUAIFENESIN 600 MG TAB ER PO SCH (22:00)
[2025-02-06 23:34] VITALS: BP 112/69
[2025-02-06] MEDS ORDERED: Water, Sterile 10 ML VIAL ONE (23:36)
[2025-02-06] MEDS ORDERED: cefTRIAXone Sodium 1 GM VIAL ONE (23:36)
[2025-02-06 23:44] LABS: BILIRUBIN Negative (Negative); BLOOD Negative (Negative); CLARITY Cloudy (Clear); COLOR Yellow (Yellow); GLUCOSE 2+ (Negative); KETONE Trace (Negative); LEUKO ESTERASE Negative (Negative); NITRITE Negative (Negative); UROBILINOGEN 0.2 E.U./dl (0.0-1.0)
[2025-02-06 23:52] LABS: HYALINE CAST 0-2; MUCOUS 1+; WBC 0-2 wbc/hpf (0-5)
[2025-02-07 05:19] LABS: BUN 16 mg/dl (9-23); CHLORIDE 107 mmol/L (98-107); POTASSIUM 4.6 mmol/L (3.4-5.1)
[2025-02-07 06:03] LABS: BASO % 0.1 % (0.0-1.0); HEMATOCRIT 39.7 % (37.0-47.0); MEAN CELL VOLUME 92.3 fl (81.0-99.0); MEAN CORPUSCULAR HGB 29.8 pg (27.0-31.0); MEAN CORPUSCULAR HGB CONC 32.2 g/dl (33.0-37.0); MEAN PLATELET VOLUME 9.3 fl (9.6-12.3); MONO # 1.2 10*3/uL (0.1-1.0); MONO % 5.6 % (3.0-9.0); NEUT # 17.7 10*3/uL (2.3-7.9); NEUT % 86.5 % (47.0-73.0); PLATELET COUNT AUTOMATED 390 10*3/uL (130-400); RED CELL DISTRI WIDTH 13.4 % (0-14.5); WHITE BLOOD COUNT 20.4 10*3/uL (4.8-10.8)
[2025-02-07 07:55] VITALS: BP 101/54
[2025-02-07] MEDS ORDERED: amLODIPine besylate 5 MG TAB PO SCH (10:00)
[2025-02-07] MEDS ORDERED: LISINOPRIL 10 MG TAB PO SCH (10:00)
[2025-02-07] MEDS ORDERED: Cetirizine Hydrochloride 10 MG TAB PO SCH (10:00)
[2025-02-07] MEDS ORDERED: Albuterol Sulf/Ipratropium 3 ML VIAL NEB PRN (10:15)
[2025-02-07 16:00] VITALS: BP 124/74
[2025-02-07] MEDS ORDERED: Albuterol Sulf/Ipratropium 3 ML VIAL NEB SCH (16:46)
[2025-02-07] MEDS ORDERED: Montelukast Sodium 10 MG TAB PO SCH (18:00)
[2025-02-07] MEDS ORDERED: GUAIFENESIN 200 MG TAB PO SCH (18:35)
[2025-02-07 20:00] VITALS: BP 112/59
[2025-02-07] MEDS ORDERED: methylPREDNISolone sod succ 40 MG VIAL IV SCH (22:00)
[2025-02-07] MEDS ORDERED: GUAIFENESIN 600 MG TAB ER PO SCH (22:00)
[2025-02-07] MEDS ORDERED: Doxycycline Hyclate 100 MG CAPSULE PO SCH (22:00)
[2025-02-08] VITALS: BP 120/60
[2025-02-08 07:11] LABS: BASO % 0.2 % (0.0-1.0); HEMATOCRIT 40.9 % (37.0-47.0); MEAN CELL VOLUME 91.7 fl (81.0-99.0); MEAN CORPUSCULAR HGB 29.6 pg (27.0-31.0); MEAN CORPUSCULAR HGB CONC 32.3 g/dl (33.0-37.0); MEAN PLATELET VOLUME 8.8 fl (9.6-12.3); MONO # 0.2 10*3/uL (0.1-1.0); MONO % 1.4 % (3.0-9.0); NEUT # 11.5 10*3/uL (2.3-7.9); NEUT % 89.8 % (47.0-73.0); PLATELET COUNT AUTOMATED 379 10*3/uL (130-400); RED BLOOD COUNT 4.46 10*6/uL (4.10-5.10); RED CELL DISTRI WIDTH 13.3 % (0-14.5); WHITE BLOOD COUNT 12.9 10*3/uL (4.8-10.8)
[2025-02-08 08:00] VITALS: BP 133/73
[2025-02-08 08:04] LABS: BUN 16 mg/dl (9-23); CHLORIDE 105 mmol/L (98-107); POTASSIUM 4.1 mmol/L (3.4-5.1)
[2025-02-08 12:00] VITALS: BP 111/64
[2025-02-08 16:00] VITALS: BP 113/64
[2025-02-08 20:00] VITALS: BP 123/62
[2025-02-08] MEDS ORDERED: methylPREDNISolone sod succ 40 MG VIAL IV SCH (22:00)
[2025-02-09] VITALS: BP 124/63
[2025-02-09 08:00] VITALS: BP 121/73
[2025-02-09] MEDS ORDERED: VENT7GM INH (09:23)
[2025-02-09] MEDS ORDERED: SPIRIVA -- 3018 MCG INH (09:23)
[2025-02-09 12:00] VITALS: BP 117/63
[2025-02-09 16:00] VITALS: BP 130/75; BP 130/78
[2025-02-09 20:00] VITALS: BP 124/65
[2025-02-10] VITALS: BP 115/65
[2025-02-10 08:00] VITALS: BP 136/78
[2025-02-10 12:00] VITALS: BP 106/63
[2025-02-10 16:00] VITALS: BP 108/63
[2025-02-10 21:00] VITALS: BP 123/76
[2025-02-11] VITALS (9 sets, daily range): BP systolic 105–132; BP diastolic 52–76
[2025-02-11] MEDS ORDERED: Lidocaine Hydrochloride 4% 5 ML AMP NEB ONE (09:40)
[2025-02-11] MEDS ORDERED: Albuterol Sulfate 1.25 MG/3 ML VIAL NEB ONE (09:40)
[2025-02-11] MEDS ORDERED: Lidocaine Hydrochloride 4% 5 ML AMP ONE (09:57)
[2025-02-11] MEDS ORDERED: Albuterol Sulfate 2.5 MG/0.5 ML VIAL NEB ONE (09:58)
[2025-02-11] MEDS ORDERED: SODIUM CHLORIDE 0.9% 500 ML IV ONE (10:31)
[2025-02-11] MEDS ORDERED: Albuterol Sulf/Ipratropium 3 ML VIAL NEB ONE ×2 (10:35→11:03)
[2025-02-11] MEDS ORDERED: methylPREDNISolone sod succ 40 MG VIAL IV SCH (22:00)
[2025-02-12] VITALS: BP 117/65
[2025-02-12 05:43] LABS: BUN 31 mg/dl (9-23); CHLORIDE 100 mmol/L (98-107); POTASSIUM 4.5 mmol/L (3.4-5.1)
[2025-02-12 05:58] LABS: BASO % 0.2 % (0.0-1.0); HEMATOCRIT 43.4 % (37.0-47.0); MEAN CELL VOLUME 88.8 fl (81.0-99.0); MEAN CORPUSCULAR HGB 28.8 pg (27.0-31.0); MEAN CORPUSCULAR HGB CONC 32.5 g/dl (33.0-37.0); MEAN PLATELET VOLUME 8.7 fl (9.6-12.3); MONO # 1.1 10*3/uL (0.1-1.0); MONO % 5.8 % (3.0-9.0); NEUT # 15.2 10*3/uL (2.3-7.9); NEUT % 83.8 % (47.0-73.0); PLATELET COUNT AUTOMATED 399 10*3/uL (130-400); RED BLOOD COUNT 4.89 10*6/uL (4.10-5.10); RED CELL DISTRI WIDTH 12.9 % (0-14.5); WHITE BLOOD COUNT 18.2 10*3/uL (4.8-10.8)
[2025-02-12 08:00] VITALS: BP 115/67
[2025-02-12 09:07] LABS: ACID FAST SPEC PROCESSING Concentration (.)
[2025-02-12 12:00] VITALS: BP 118/71
[2025-02-12 16:00] VITALS: BP 107/58
[2025-02-12 20:00] VITALS: BP 112/53
[2025-02-13] VITALS: BP 132/70
[2025-02-13] MEDS ORDERED: Acetaminophen/Hydrocodone 5 MG/325 MG TABLET PO PRN (02:00)
[2025-02-13 08:00] VITALS: BP 125/74
[2025-02-13] MEDS ORDERED: HEPARIN SODIUM 250 ML IV SCH (09:45)
[2025-02-13] MEDS ORDERED: DOXYCYCLINE MO100 MG PO (10:43)
[2025-02-13] MEDS ORDERED: MUCINEX PO (10:43)
== END 2025-02-13 12:28 | disposition short-term general hospital (02) | DRG 871 ==
LOC: ED 18:46 → 5E 23:39 → EDHOLD 23:39 → 5E 02-07 15:01
PROVIDERS: Emergency Medicine; Internal Medicine Critical Care Medicine; Student in an Organized Health Care Education/Training Program; ADMIT Internal Medicine; ATTEND Internal Medicine
PROC: 0BC18ZZ Extirpation of Matter from Trachea, Via Natural or Artificial Opening Endoscopic (ICD-10-PCS; principal; 2025-02-05)
PROC: 0BC28ZZ Extirpation of Matter from Carina, Via Natural or Artificial Opening Endoscopic (ICD-10-PCS; 2025-02-05)
PROC: 0BC98ZZ Extirpation of Matter from Lingula Bronchus, Via Natural or Artificial Opening Endoscopic (ICD-10-PCS; 2025-02-05)
PROC: 0BC48ZZ Extirpation of Matter from Right Upper Lobe Bronchus, Via Natural or Artificial Opening Endoscopic (ICD-10-PCS; 2025-02-05)
PROC: 0BC88ZZ Extirpation of Matter from Left Upper Lobe Bronchus, Via Natural or Artificial Opening Endoscopic (ICD-10-PCS; 2025-02-05)
PROC: 0BC58ZZ Extirpation of Matter from Right Middle Lobe Bronchus, Via Natural or Artificial Opening Endoscopic (ICD-10-PCS; 2025-02-05)
PROC: 0BC38ZZ Extirpation of Matter from Right Main Bronchus, Via Natural or Artificial Opening Endoscopic (ICD-10-PCS; 2025-02-05)
PROC: 0BC78ZZ Extirpation of Matter from Left Main Bronchus, Via Natural or Artificial Opening Endoscopic (ICD-10-PCS; 2025-02-05)
PROC: 0BC68ZZ Extirpation of Matter from Right Lower Lobe Bronchus, Via Natural or Artificial Opening Endoscopic (ICD-10-PCS; 2025-02-05)
PROC: 0BCB8ZZ Extirpation of Matter from Left Lower Lobe Bronchus, Via Natural or Artificial Opening Endoscopic (ICD-10-PCS; 2025-02-05)
DX: A41.9 Sepsis, unspecified organism (principal); J96.01 Acute respiratory failure with hypoxia; J44.1 Chronic obstructive pulmonary disease with (acute) exacerbation; J44.0 Chronic obstructive pulmonary disease with (acute) lower respiratory infection; R73.9 Hyperglycemia, unspecified; E66.9 Obesity, unspecified; J20.9 Acute bronchitis, unspecified; F17.210 Nicotine dependence, cigarettes, uncomplicated; I99.8 Other disorder of circulatory system; T17.990A Other foreign object in respiratory tract, part unspecified in causing asphyxiation, initial encounter; J98.4 Other disorders of lung; E87.8 Other disorders of electrolyte and fluid balance, not elsewhere classified; Z86.718 Personal history of other venous thrombosis and embolism; Z88.0 Allergy status to penicillin; Z91.018 Allergy to other foods; Z91.09 Other allergy status, other than to drugs and biological substances; Z79.899 Other long term (current) drug therapy; Z68.33 Body mass index [BMI] 33.0-33.9, adult; Z79.01 Long term (current) use of anticoagulants; Z79.2 Long term (current) use of antibiotics; Z98.891 History of uterine scar from previous surgery; Z80.1 Family history of malignant neoplasm of trachea, bronchus and lung; Z84.89 Family history of other specified conditions; W44.F9XA Other object of natural or organic material, entering into or through a natural orifice, initial encounter; Y93.89 Activity, other specified; Y92.89 Other specified places as the place of occurrence of the external cause; Y99.8 Other external cause status

== ENCOUNTER → 2025-06-01 | Outpatient (CLI) | payer OTHER ==
[~2025-06-01] MED LIST changes: +DOXYCYCLINE MO100 MG PO; +ELIQUIS5 M1 PO; +METFORMIN XR500 MG PO; +MUCINEX PO; +NORVASC5 MG PO; +VENT7GM INH
== END ==
LOC: CARD 04-20 04:09
PROVIDERS: ATTEND Internal Medicine Cardiovascular Disease
DX: R06.09 Other forms of dyspnea (principal); I75.89 Atheroembolism of other site